=== PATIENT | female | born 1955 | race Caucasian/White ===

== ENCOUNTER → 2018-03-25 | Outpatient (CLI) | payer BC ==
--- NOTE | 2018-03-26 14:33 | PCVCIMAG ---
APPROVED REPORT Study performed: 03/25/2018 14:15:26 Exam: Stress Echocardiogram Indication: sob,htn,hcl Patient Location: Echo lab Stress Nurse: Eleni Aldrich RN Room #: 2 Status: routine Ht: 5 ft 5 in HR: 86 bpm BP: 126/94 mmHg Rhythm: NSR Medical History Medical History: HTN, Hyperlipidemia Cardiac Risk Factors: HTN, Hyperlipidemia, FHX of CAD Pretest Chest Pain Characteristics: No chest pain Exercise History: Sedentary Procedure The patient underwent an Exercise Stress Test using the Gamaliel Protocol. Blood pressure, heart rate, and EKG were monitored. An Echocardiogram was performed by a&p technician in four stages in quad fashion. At peak stress, four selected images were obtained and placed side by side with resting images for comparison. Stress Test Details Stress Test: Exercise stress testing was performed using a Gamaliel protocol. HR Resting HR: 86 bpmMax Heart Rate (APMHR): 159 bpm Max HR Achieved: 141 bpmTarget HR (85% APMHR): 135 bpm % of APMHR: 88 Recovery HR: 84 bpm HR response to stress: Normal HR response to stress BP Resting BP: 126/94 mmHg Max BP: 180/90 mmHg Recovery BP: 146/84 mmHg ECG Resting ECG: Sinus Rhythm Stress ECG: Sinus Rhythm ST Change: Non-ischemic Arrhythmia: Rare PAC,PVC Recovery ECG: Sinus Rhythm Recovery ST Change: Non-ischemic Recovery Arrhythmia: None Clinical Reason for Termination: Maximal effort Stress Symptoms: fatigue,dyspnea Exercise duration: 3 min 01 sec Highest Stage Achieved: Stage 1: 1.7 mph at 10% grade. Exercise capacity: 4.6 METs Overall Exercise Capacity for Age: Poor Angina Score: None No complications. Stress ECG Conclusion The patient exercised according to the GAMALIEL protocol for 3:01 mins; achieving a work level of 4.6 METS. The resting heart rate of 86bpm [place] to a maximum heart rate of 141 bpm. This value represent 88% of the maximal, age-predicted heart rate. The resting blood pressure of 126/94 mmHg, [place] to a maximum blood pressure of 180/90 mmHg. The exercise test was stopped due to fatigue,dyspnea . Pre-Stress Echo The resting Echocardiogram showed normal left ventricular contractility with an estimated Ejection Fraction of about 55-60%. Normal wall motion in all segments on baseline images. Post-Stress Echo The stress Echocardiogram showed normal left ventricular contractility with an estimated Ejection Fraction of about 65-70%. Normal augmentation of wall motion in all segments on post stress images. Clinical No clinical or ECG evidence for ischemia. Conclusion Clinical Response: Non-ischemic Exercise Capacity: Below Average Stress ECG Response: Non-ischemic Stress Echo Images: Non-ischemic No clinical, EKG or echocardiographic evidence for ischemia. No echocardiographic evidence for exercise induced ischemia. Normal stress echocardiogram with maximal exercise stress. <Conclusion> No clinical, EKG or echocardiographic evidence for ischemia. No echocardiographic evidence for exercise induced ischemia. Normal stress echocardiogram with maximal exercise stress.
== END | disposition home or self-care (01) ==
LOC: PCVCIMAG 14:09
PROVIDERS: ATTEND Internal Medicine Cardiovascular Disease
DX: I10 Essential (primary) hypertension (principal); R07.9 Chest pain, unspecified; Q21.1 Atrial septal defect
CPT/HCPCS: 93325; 93351